=== PATIENT | female | born 1970 | race Caucasian/White ===

== ENCOUNTER 2018-01-03 05:28 | Day surgery (SDC) | payer BC ==
[2018-01-03] MEDS: NEOMYC/POLYMYX/BACIT 30 GM OINT
[2018-01-03] MEDS ORDERED: LIDOCAINE 2% (SDV) 5 ML INJ (06:23)
[2018-01-03] MEDS ORDERED: PROPOFOL 20 ML (06:23)
[2018-01-03] MEDS ORDERED: FENTAnyl 50 MCG/ML VIAL (06:23)
[2018-01-03] MEDS ORDERED: GLYCOPYRROLATE 0.4 MG INJ (06:23)
[2018-01-03] MEDS ORDERED: MIDAZOLAM 1 MG/ML 2 ML INJ (06:23)
[2018-01-03] MEDS ORDERED: NEOSTIGMINE 3 MG/3 ML SYRINGE (06:23)
[2018-01-03] MEDS ORDERED: ROCURONIUM 50 MG INJ (06:23)
[2018-01-03] MEDS ORDERED: ATROPINE 1 MG/10 ML SYRINGE IV (06:30)
[2018-01-03] MEDS ORDERED: morphine (1 MG/ML) 10ML SYRINGE IV ×3 (06:30)
[2018-01-03] MEDS ORDERED: HYDROmorphONE (0.2 MG/ML) 10ML SYG IV ×2 (06:30)
[2018-01-03] MEDS ORDERED: LABETALOL HCL 20MG INJ IV (06:30)
[2018-01-03] MEDS ORDERED: hydrALAzine 20 MG INJ IV (06:30)
[2018-01-03] MEDS ORDERED: DIPHENHYDRAMINE 50 MG INJ IV (06:30)
[2018-01-03] MEDS ORDERED: OXYCODONE/ACETAMINOPHEN (5/325) TAB PO ×2 (06:30)
[2018-01-03] MEDS ORDERED: EPHEDrine SULFATE 50 MG/5 ML SYG IV (06:30)
[2018-01-03] MEDS ORDERED: MIDAZOLAM 1 MG/ML 2 ML INJ IV (06:30)
[2018-01-03] MEDS ORDERED: FENTAnyl 50 MCG/ML VIAL IV ×2 (06:30)
[2018-01-03] MEDS ORDERED: MEPERIDINE 25 MG INJ IV (06:30)
[2018-01-03] MEDS ORDERED: DEXAMETHASONE 4 MG/ML 1 ML INJ (06:32)
[2018-01-03] MEDS ORDERED: ONDANSETRON 4 MG INJ (06:32)
[2018-01-03] MEDS ORDERED: ROPIVACAINE 0.5 % 30 ML VIAL (06:33)
[2018-01-03 06:56] LABS: INR 1.04; PROTIME 13.7 Sec (11.9-14.9); PT RATIO 1.1
[2018-01-03 06:57] LABS: PARTIAL THROMBOPLASTIN TIME 30.3 Sec (25.0-35.0)
[2018-01-03] MEDS: BUPIVACAINE 0.5% (SDV) 30 ML INJ (07:14)
[2018-01-03] MEDS ORDERED: morphine 2 MG INJ IV (08:00)
[2018-01-03] MEDS: LIDOCAINE 1% (MDV) 20 ML INJ (08:15)
[2018-01-03] MEDS: morphine SULFATE/PF (10 MG/10 ML) INJ (08:26)
[2018-01-03] MEDS: ROPIVACAINE 0.5 % 30 ML VIAL (08:26)
[2018-01-03] MEDS ORDERED: FLUMAZENIL 0.5 MG INJ (08:46)
[2018-01-03] MEDS: ONDANSETRON 4 MG INJ IV (09:37)
[2018-01-03] MEDS: HYDROmorphONE (0.2 MG/ML) 10ML SYG IV (09:38)
== END 2018-01-03 10:35 | disposition home or self-care (01) ==
LOC: SDS 05:28
DX: M23.221 Derangement of posterior horn of medial meniscus due to old tear or injury, right knee (principal); M94.261 Chondromalacia, right knee; I10 Essential (primary) hypertension; E03.9 Hypothyroidism, unspecified
CPT/HCPCS: 29881; 84703; 85610; 85730

== ENCOUNTER 2018-06-26 13:29 | Emergency (ER) | payer BC ==
[2018-06-26] MEDS: FAMOTIDINE 20 MG TAB PO (15:56)
[2018-06-26] MEDS: LORAZEPAM 0.5 MG TAB PO (15:56)
[2018-06-26] MEDS: MECLIZINE 12.5 MG TAB PO (15:56)
[2018-06-26] MEDS: ACETAMINOPHEN 325 MG TAB PO (15:56)
[2018-06-26 15:57] LABS: ADD MAN DIFF? NO
[2018-06-26 15:59] LABS: WHITE BLOOD COUNT 6.3 10^3/ul (4.8-10.8)
[2018-06-26 15:59] LABS: BASOPHILS % 0.3 % (0.0-2.0); EOSINOPHILS # 0.1 10^3/ul (0.0-0.5); EOSINOPHILS % 1.7 % (0.0-7.0); HEMOGLOBIN 13.5 g/dl (12.0-16.0); LYMPHOCYTES # 1.8 10^3/ul (0.8-2.9); LYMPHOCYTES % 28.1 % (15.0-51.0); MEAN CORPUSCULAR HEMOGLOBIN 29.9 pg (29.0-33.0); MEAN CORPUSCULAR HGB CONC 32.9 g/dl (32.0-37.0); MEAN CORPUSCULAR VOLUME 90.9 fl (82.0-101.0); MEAN PLATELET VOLUME 9.9 fl (7.4-10.4); MONOCYTE # 0.4 10^3/ul (0.3-0.9); MONOCYTES % 6.3 % (0.0-11.0); NEUTROPHILS % 63.4 % (39.0-77.0); PLATELET COUNT 200 10^3/UL (140-415); RED BLOOD COUNT 4.51 10^6/ul (4.20-5.40)
[2018-06-26 16:12] LABS: UR BACTERIA FEW /HPF (NONE SEEN); UR RBC 2 /HPF (0-5); UR SQUAMOUS EPITHELIAL CELL FEW /HPF (FEW); UR WBC 1 /HPF (0-5)
[2018-06-26 16:16] LABS: ALANINE AMINOTRANSFERASE 21 IU/L (13-69); ALBUMIN 4.7 g/dl (3.3-4.9); ALKALINE PHOSPHATASE 40 IU/L (42-121); ANION GAP 14 (8-16); ASPARTATE AMINO TRANSFERASE 22 IU/L (15-46); BILIRUBIN,INDIRECT 0.3 mg/dl (0-1.1); BILIRUBIN,TOTAL 0.3 mg/dl (0.2-1.3); BLOOD UREA NITROGEN 16 mg/dl (7-20); CARBON DIOXIDE 25 mmol/L (21-31); CHLORIDE 105 mmol/L (97-110); CREATININE 0.64 mg/dl (0.44-1.00); GLUCOSE 101 mg/dl (70-220); LIPASE 182 U/L (23-300); POTASSIUM 4.3 mmol/L (3.5-5.1); SODIUM 140 mmol/L (135-144); TOTAL PROTEIN 8.3 g/dl (6.1-8.1)
[2018-06-26 16:18] LABS: ADD UMIC YES; UR ASCORBIC ACID NEGATIVE (NEGATIVE); UR BILIRUBIN (Dip) NEGATIVE (NEGATIVE); UR BLOOD (Dip) 2+ mg/dL (NEGATIVE); UR CLARITY CLEAR (CLEAR); UR COLOR STRAW (YELLOW); UR GLUCOSE (Dip) NEGATIVE (NEGATIVE); UR KETONES (Dip) NEGATIVE (NEGATIVE); UR LEUKOCYTE ESTERASE (Dip) NEGATIVE Leu/ul (NEGATIVE); UR NITRITE (Dip) NEGATIVE (NEGATIVE); UR SPECIFIC GRAVITY (Dip) 1.011 (1.003-1.030); UR TOTAL PROTEIN (Dip) NEGATIVE (NEGATIVE); UR UROBILINOGEN (Dip) NEGATIVE (NEGATIVE)
[2018-06-26 16:25] LABS: PROTIME 12.2 Sec (11.9-14.9)
[2018-06-26 16:26] LABS: PARTIAL THROMBOPLASTIN TIME 32.5 Sec (25.0-35.0)
[2018-06-26 16:27] LABS: TROPONIN-I < 0.012 ng/ml (0.000-0.120)
== END 2018-06-26 17:18 | disposition home or self-care (01) ==
LOC: FTE 13:29
DX: R10.13 Epigastric pain (principal); R42 Dizziness and giddiness; Z79.82 Long term (current) use of aspirin
CPT/HCPCS: 36415; 71045; 80053; 81001; 81025; 83690; 84484; 85025; 85610; 85730; 93005; 99285-25